=== PATIENT | male | born 1980 | race Caucasian/White ===

== ENCOUNTER → 2017-07-10 | Outpatient (CLI) | payer BC ==
[~2017-07-10] MED LIST: BENTYL20 MG PO; HYDROCODON-ACE1 EAC9 PO; NO MEDICATIONS; PAIN RELIEF325 MG PO; PYRIDIUM PO; VIBRAMYCIN100 M1 PO
[2017-07-10 15:22] LABS: HEMATOCRIT 46.2 % (38.0-50.0); HEMOGLOBIN 16.2 gm/dL (13.0-16.0); MEAN CORPUSCULAR HEMOGLOBIN 29.8 PG (28-34); MEAN CORPUSCULAR HGB CONC 35.1 g/dL (30-36); MEAN PLATELET VOLUME 9.2 FL (6.5-11.5); RED BLOOD COUNT 5.44 X10e (3.90-5.60); RED CELL DISTRIBUTION WIDTH 13.4 % (11.0-15.5); WHITE BLOOD COUNT 6.5 X10e3 (4.0-10.5)
[2017-07-10 15:50] LABS: BUN/CREATININE RATIO 16.66; CALCIUM SERUM 8.9 mg/dL (8.4-10.2); CREATININE SERUM 0.9 mg/dL (0.6-1.4); POTASSIUM 3.7 mmol/L (3.5-5.1)
== END | disposition home or self-care (01) ==
LOC: CAMB 14:22 → EDSTATUS 15:00
PROVIDERS: Specialist
DX: Z01.812 Encounter for preprocedural laboratory examination (principal); L05.91 Pilonidal cyst without abscess
CPT/HCPCS: 36415; 80048; 85027

== ENCOUNTER → 2017-07-17 | Day surgery (SDC) | payer BC ==
--- NOTE | ~2017-07-17 | OR ---
Unit #: [id number]: [id number] Patient: STACY SALTER [id number] [address] [address] [id number] O MR#: [id number] NAME: STACY SALTER ROOM: Date of Procedure: 07/17/2017 Admission Date: 07/17/2017 Surgeon: Rhett Ingram M.D. : 1980 Attending Physician: Rhett Ingram M.D. OPERATIVE REPORT PREOPERATIVE DIAGNOSIS Chronic recurrent pilonidal cystectomy. POSTOPERATIVE DIAGNOSIS Chronic recurrent pilonidal cystectomy. PROCEDURE PERFORMED Pilonidal cystectomy with placement of a Prevena dressing. ANESTHESIA General endotracheal anesthesia. ESTIMATED BLOOD LOSS 30 mL. INDICATIONS FOR PROCEDURE A 36-year-old gentleman, who has had a longstanding and chronically recurrent pilonidal abscess and cyst. He had several midline pits with large amounts of ingrown follicles and then to the left buttock, he had several areas of chronic sinus tract formation with granulation tissue from multiple episodes of abscess with spontaneous drainage. He also had several incision sites that it healed from previous drainage. Because of the chronic recurrent nature and frequent recurrences, pilonidal cystectomy was indicated. DESCRIPTION OF PROCEDURE The patient was admitted to [facility], positively identified, transported to the operating room, and after induction of general endotracheal anesthesia, he was placed on the operating room table in the prone position with chest rolls and appropriate padding on all pressure points. He received vancomycin IV. His buttock and perianal area were clipped of hair, and his buttocks were taped apart. Then, after being prepped and draped, I evaluated the different sites and using the probe, the lateral and superior and inferior extent of the underlying abscess cavity. Wedge excision to include all affected sites was performed and then I dissected down and removed all of the tissue down to the level of the sacral fascia on bloc. The specimen was sent to the laboratory. I irrigated and obtained hemostasis. I then created lateral flaps by mobilizing the skin and soft tissue off the gluteal fascia bilaterally. After irrigating and infiltrated 30 mL of local anesthetic, #1 Vicryl sutures were used to reapproximate the soft tissue and to flatten out and removed the intergluteal cleft. Once the soft tissue was Unit #: [id number] #: [id number] Patient: STACY SALTER closed in layers with #1 and 2-0 Vicryl interrupted sutures, the skin was reapproximated with 2-0 nylon vertical mattress sutures. After this was done, the tape was removed taking the tension off the repair and we had excellent closure. A Prevena suction drainage system was then applied and had excellent suction and positioning. The role of this will be to remove all subcutaneous fluid to prevent wound failure and wound infection. The patient tolerated the procedure well. Sponges and needle counts were correct x3. He was transported to recovery in stable condition. Findings and postoperative instructions were discussed with his . Dictated by... Talisha Greene/gladys TD: 07/17/2017 16:02 JOB #: [id number] OPERATIVE REPORT Page 1 of 1 X Rhett Ingram MD PROCEDURE OPERATIVE NOTE
== END | disposition home or self-care (01) ==
LOC: CSUR 07:38
DX: L05.01 Pilonidal cyst with abscess (principal); L73.8 Other specified follicular disorders; Z87.891 Personal history of nicotine dependence; Z90.49 Acquired absence of other specified parts of digestive tract
CPT/HCPCS: 88304; J0330; J1650; J1885; J2250; J2405; J3010; J3370